=== PATIENT | male | born 1955 | race Caucasian/White ===

== ENCOUNTER 2018-06-19 13:39 | Emergency (ER) | payer BC ==
[2018-06-19 14:50] VITALS: BP 113/75
--- NOTE | 2018-06-19 15:18 | UC ---
Dizzy HPI HPI Summary: ABOUT 1 MONTH OF INTERMITTENT DIZZINESS. NOT WORSE WITH CHANGE IN HEAD POSITION ALTHOUGH SOMETIMES WORSE WHEN HE STANDS UP. NO HEAD INJURY. NO SYNCOPE. NO FEVER, NAUSEA OR VISUAL DISTURBANCES. 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 REPORTS HE HAS ANEMIA AND IS SCHEDULED FOR A COLONOSCOPY IN A MONTH AND A HALF. STATES HE FEELS SOB WITH EXERTION MORE THAN NORMAL. JUST MOVED TO [place]. NO PCP YET. - History Of Current Complaint Chief Complaint: UCDizziness Stated Complaint: DIZZINESS Time Seen by Provider: 06/19/18 14:24 Hx Obtained From: Patient Onset/Duration: Gradual Onset, Lasting Weeks, Still Present Timing: Intermittent Episode Lasting Severity Initially: Moderate Severity Currently: Moderate Pain Intensity: 0 Pain Scale Used: 0-10 Numeric Character: Lightheaded, Dizzy Aggravating Factor(s): Nothing Alleviating Factor(s): Rest Associated Signs And Symptoms: Positive: Tinnitus, SOB, Unsteady Gait. Negative : Nausea, Vomiting, Diaphoresis, Chest Pain, Palpitations, Visual Changes, Change In Diet - Allergies/Home Medications Allergies/Adverse Reactions: Allergies Allergy/AdvReac Type Severity Reaction Status Date / Time No Known Allergies Allergy Verified 06/19/18 14:25 Home Medications: Home Medications Atorvastatin* [Lipitor 10 MG*] 1 tab BEDTIME 06/19/18 [History Confirmed ] Sitagliptin Phosphate [Januvia] 1 tab DAILY 06/19/18 [History Confirmed 06/19/18 ] amLODIPine TAB* [Norvasc 5 mg TAB*] 1 tab DAILY 06/19/18 [History Confirmed ] metFORMIN* [Glucophage 1000 MG TAB *] 1 tab BID 06/19/18 [History Confirmed ] PMH/Surg Hx/FS Hx/Imm Hx - Additional Past Medical History Additional PMH: ANEMIA Endocrine History: Diabetes, Dyslipidemia Cardiovascular History: Hypertension GI/ History: Renal Disease - Surgical History Surgical History: None - Family History Known Family History: Positive: Cardiac Disease - Social History Alcohol Use: Daily Alcohol Amount: 1 glass of wine/night Substance Use Type: None Smoking Status (MU): Never Smoked Tobacco - Immunization History Most Recent Tetanus Shot: UTD Review of Systems Constitutional: Negative Skin: Negative Eyes: Negative ENT: Negative Respiratory: Shortness Of Breath Cardiovascular: Negative Gastrointestinal: Negative Neurological: Other - DIZZY All Other Systems Reviewed And Are Negative: Yes Physical Exam Triage Information Reviewed: Yes Appearance: Well-Appearing, No Pain Distress, Well-Nourished Vital Signs: Initial Vital Signs Temp 97.6 F 06/19/18 14:26 Pulse 82 06/19/18 14:26 Resp 16 06/19/18 14:26 BP 113/75 06/19/18 14:26 Pulse Ox 100 06/19/18 14:26 Vital Signs Reviewed: Yes Eyes: Positive: Conjunctiva Clear ENT: Positive: Pharynx normal, TMs normal, Other - HEARING DEFICIT RIGHT EAR Neck: Positive: Supple, Nontender, No Lymphadenopathy Respiratory Exam: Normal Cardiovascular Exam: Normal Abdomen Description: Positive: Soft Musculoskeletal: Positive: No Edema Neurological: Positive: Alert Psychological: Positive: Age Appropriate Behavior Skin: Negative: rashes Diagnostics - EKG Cardiac Rate: NL - 78 BPM Cardiac Rhythm: Sinus: Normal, Other Rhythm: New - RBBB Ectopy: None ST Segment: Normal Dizzy Course/Dx - Course Course Of Treatment: PT DECLINES TRANSFER TO ED. ADVISED THAT HE COULD BE RISKING WORSENING OF HIS CONDITION THAT COULD POSE A THREAT TO HIS LIFE, HEALTH AND MEDICAL SAFETY. HE VERBALIZES UNDERSTANDING AND CONTINUES TO DECLINE TRANSFER. EKG SHOWS RBBB. NO PREVIOUS FOR COMPARISON. LIST OF LOCAL SPECIALISTS AND PCP PROVIDED. ADVISED TO GO TO ED WITHOUT FAIL IF SX WORSEN. - Differential Dx/Diagnosis Provider Diagnoses: DIZZINESS, NOS Discharge - Sign-Out/Discharge Documenting (check all that apply): Patient Departure All imaging exams completed and their final reports reviewed: No Studies - Discharge Plan Condition: Stable Disposition: HOME Patient Education Materials: Dizziness (ED) Referrals: No Primary Care Phys,NOPCP [Primary Care Provider] - Additional Instructions: YOUR EKG TODAY SHOWED A RIGHT BUNDLE BRANCH BLOCK. NO ACUTE INTERVENTION IS REQUIRED FOR THIS BUT YOU NEED TO ESTABLISH WITH A PCP. YOU WOULD BENEFIT FROM FURTHER WORK-UP FOR YOUR DIZZINESS. NEED TO RULE OUT MULTIPLE POSSIBLE UNDERLYING CAUSES INCLUDING HEART CONDITION, ANEMIA, METABOLIC CONDITION, EAR CONDITION. YOU HAVE DECLINED TRANSFER TO THE ED TODAY WITH THE UNDERSTANDING THAT YOUR CONDITION MAY WORSEN LEADING TO RESPIRATORY DISTRESS/FAILURE, CARDIAC ARREST, /DISABILITY. Dizziness, non-specific: Dizziness means a sense of severe lightheadedness or instability. It can be a symptom of many different diseases, and is a side effect of many medicines. It can be caused by high blood pressure, or by low blood pressure. It can even be a symptom of anxiety. Dizziness can also happen to perfectly healthy people. Sometimes it's caused by over-exercise, mild dehydration, lack of sleep, or poor nutrition. Sometimes we find no explanation. We try to diagnose the exact cause of dizziness, such as dehydration, fever , diabetes, low heart rate, etc. Sometimes it's obvious right away. If not, we do testing. At this time, there's no evidence of a serious problem requiring hospitalization. You should get enough rest, exercise moderately, and get plenty of fluids. Continue your usual medicines unless the doctor has specifically told you to change them. When you feel the first symptoms suggesting you might faint, sit or squat down as quickly as you can. If symptoms don't go away quickly, lie down. GO TO ED WITHOUT FAIL IF YOU DEVELOP WORSENING DIZZINESS, SHORTNESS OF BREATH, CHEST PAIN, NAUSEA, SWEATS OR ANY OTHER CONCERNING SYMPTOMS. CALL THE NUMBER BELOW FOR ASSISTANCE IN ESTABLISHING WITH A PCP An additional resource available to assist in finding the appropriate physician for your health care needs is [facility] ([facility]). You may contact them by calling [phone]. LIST OF LOCAL SPECIALIST OFFICES PROVIDED. - Billing Disposition and Condition Condition: STABLE Disposition: Home
== END 2018-06-19 15:29 | disposition home or self-care (01) ==
LOC: UCCORT 13:39
DX: R42 Dizziness and giddiness (principal); E11.9 Type 2 diabetes mellitus without complications; I10 Essential (primary) hypertension; E78.5 Hyperlipidemia, unspecified; Z79.899 Other long term (current) drug therapy
CPT/HCPCS: 93005; 99201; G0463